=== PATIENT | male | born 1945 | race Caucasian/White ===

== ENCOUNTER 2016-03-13 08:13 | Emergency (ER) | payer OTHER, MEDICARE ==
[~2016-03-13] VITALS: Ht 193 cm; Wt 101.0 kg
[~2016-03-13 08:13] MED LIST: AML5T PO; ASP81CT PO; CEPH-507 PO; HYDR-3702 PO; HYDR-3811 PO
--- NOTE | 2016-03-13 08:37 | NUR ---
@BS PERFORMINGN EXAM, NAD.
[2016-03-13] MEDS ORDERED: KETOROLAC 60 MG/2 ML (TORADOL) VIAL IM ONE (08:40)
--- NOTE | 2016-03-13 08:50 | NUR ---
Return from xray via w/c and staff, NAD.
--- NOTE | 2016-03-13 09:01 | NUR ---
Sitting up in stretcher, denies concerns.
[2016-03-13] MEDS ORDERED: LIDOCAINE (LIDODERM) 5% PATCH TOP ONE (09:05)
[2016-03-13] MEDS ORDERED: HYDR-3702 PO ×2 (09:06→09:20)
--- NOTE | 2016-03-13 09:10 | NUR ---
Notified pharm of rx order.
--- NOTE | 2016-03-13 09:13 | Diagnostic Imaging Report ---
INDICATION: Fall with left-sided rib pain. COMPARISON: None available. TECHNIQUE: PA chest with three views of the left ribs. FINDINGS AND IMPRESSION: 1. No pneumothorax, pulmonary contusion or pleural effusion. 2. No discrete rib fracture, although nondisplaced rib fractures can be radiographically occult. Dictated by: Dictated on workstation # [id number]
[2016-03-13 09:34] VITALS: BP 132/87
== END 2016-03-13 09:35 | disposition home or self-care (01) ==
LOC: EDUNIT# 08:13 → ED 08:17
DX: S22.32XA Fracture of one rib, left side, initial encounter for closed fracture (principal); W01.198A Fall on same level from slipping, tripping and stumbling with subsequent striking against other object, initial encounter; Y92.008 Other place in unspecified non-institutional (private) residence as the place of occurrence of the external cause
CPT/HCPCS: 71101; 96372; 99282; J1885; 99283

== ENCOUNTER → 2016-03-23 | Emergency (ER) | payer MEDICARE, OTHER ==
[~2016-03-23] VITALS: Ht 193 cm; Wt 101.0 kg
[2016-03-23 08:59] VITALS: BP 163/94
== END | disposition home or self-care (01) ==
LOC: ED 08:55
DX: R03.0 Elevated blood-pressure reading, without diagnosis of hypertension (principal)
CPT/HCPCS: 99281; 99282